=== PATIENT | female | born 2000 | race Caucasian/White ===

== ENCOUNTER 2023-11-03 23:44 | Emergency (ER) | payer OTHER, SELFPAY ==
[2023-11-03 23:56] VITALS: BP 122/69; PULSE 65; RESP 16; TEMP 36.7; O2SAT 96; BMI 20.2
[2023-11-04 00:59] VITALS: BP 139/95; PULSE 62; RESP 16; TEMP 36.1; O2SAT 97
--- NOTE | 2023-11-04 01:06 | MHC.EDTECH ---
This pct just assumed care of Patient vitals taken and Pt urine sample collected and sent to lab .
[2023-11-04 01:13] LABS: Appearance Urine Cloudy; Color Urine Yellow; Glucose Urine UA Negative (Negative); Leukocyte Esterase Urine Large (3+) (Negative); Nitrite Urine Negative (Negative); Specific Gravity - Urine 1.015 (1.005-1.025); UMIC TRIGGER UACC YES; Urine Blood Small (1+) (Negative); Urine Ketones Negative (Negative); Urine Protein Trace mg/dL (Neg-Trace)
[2023-11-04 01:15] LABS: UPreg QC Valid YES; Urine Pregnancy NEGATIVE (NEGATIVE)
[2023-11-04 01:22] LABS: Bacteria Urine 2+ (None Seen); Hyaline Casts Urine 0-2 /LPF (0-2); RBC Urine 0-2 /HPF (0-2); UACC Culture Trigger YES; WBC Urine >50 /HPF (0-5)
[2023-11-04 02:39] VITALS: BP 121/91; PULSE 61; RESP 16; TEMP 36.8; O2SAT 98
--- NOTE | 2023-11-04 03:38 | ED_ITS ---
HPI - Female Genitourinary General Chief complaint: Urogenital-Female Stated complaint: UTI? Time Seen by Provider: 11/04/23 03:38 History of Present Illness HPI Narrative: The patient is a 22-year-old woman who comes to the emergency room with 1 day of dysuria. She says that she has had urinary tract infections in the past and she felt like she has another urinary tract infection. Last intercourse was 1 week ago. There was no dyspareunia. She describes her a slight white vaginal discharge with an odor. No pelvic pain. Related Data Previous Rx's Medication Instructions Recorded phenazopyridine 200 mg tablet 200 mg PO TID PRN pain 6 doses #6 11/04/23 tabs sulfamethoxazole 400 1 tab PO BID #10 tabs 11/04/23 mg-trimethoprim 80 mg tablet (Bactrim) Allergies Allergy/AdvReac Type Severity Reaction Status Date / Time Penicillins [PENICILLINS] Allergy Intermediate HIVES Unverified 11/03/23 23:55 Review of Systems Review of Systems: Yes all other systems are reviewed and are negative [facility] Social History Social History Smoked in Last 30 Days: No Use of substances other than those prescribed or required for medical reasons: No Advance Directives: No Advance Directives Information Provided: No Patient : No Physical Exam Vital Signs: Vital Signs: Last Vital Signs Temp 97.0 F 11/04/23 04:00 Pulse 71 11/04/23 04:00 Resp 16 11/04/23 04:00 BP 115/61 11/04/23 04:00 Pulse Ox 97 11/04/23 04:00 O2 Del Method Room Air 11/04/23 04:00 BMI result Body Mass Index 20.2 Const: Other: The patient has the appearance of an ordinarily healthy 22-year-old. She has not appear ill or toxic. HEENT: Other: The face is symmetrical. ?Mucous membranes moist. Eyes: Other: Pupils are round equal, conjunctivae are clear, extraocular movements intact Resp: Effort & Inspection: normal respiratory effort Auscultation: clear to auscultation bilaterally Cardio: Rate: regular rate Rhythm: regular rhythm Heart sounds: S1 normal heart sound present and S2 normal heart sound present GI: Other: Abdomen is soft and nontender. Back/Spine/Pelvis: Other: No CVA percussion tenderness Skin: Other: Skin is pale and dry Neuro: Other: Awake, alert, appropriate, grossly neurologically intact. Extrem: Other: No peripheral edema. Medications Administered Discontinued Medications Generic Name Dose Route Start Last Admin Trade Name Damaris PRN Reason Stop Dose Admin Phenazopyridine HCl 200 mg 11/04/23 03:46 11/04/23 04:28 Phenazopyridine Hcl 200 Mg Tablet PO 11/04/23 03:47 200 mg ONCE ONE Administration Trimethoprim/Sulfamethoxazole 1 tab 11/04/23 03:46 11/04/23 04:28 Sulfamethox/Trimeth 800/160 Tablet PO 11/04/23 03:47 1 tab ONCE ONE Administration Medical Decision Making Medical Decision Making MDM Narrative: The patient presents with dysuria. Urinalysis is suggestive of a UTI. The patient had mentioned some whitish vaginal discharge at triage but she did not wish to have a pelvic exam today nor did she wished to have any STI testing. She did not want to submit a urine for STI testing. She wanted to be treated for a UTI. She would rather simply treat the UTI and and follow-up if she has additional symptoms or does not improve. test was negative. Lab Data Labs: Lab Results 11/04/23 Range/Units 01:05 Urine Color Yellow Urine Appearance Cloudy Urine pH 6.0 (5.0-9.0) Ur Specific [place] 1.015 (1.005-1.025) Urine Protein Trace (Neg-Trace) mg/dL Urine Glucose (UA) Negative (Negative) mg/dL Urine Ketones Negative (Negative) mg/dL Urine Blood Small (1+) H (Negative) Urine Nitrite Negative (Negative) Ur Leukocyte Esterase Large (3+) H (Negative) Urine RBC 0-2 (0-2) /HPF Urine WBC >50 H (0-5) /HPF Ur Squamous Epith Cells 11-20 (0-2) /HPF Urine Bacteria 2+ (None Seen) Hyaline Casts 0-2 (0-2) /LPF Urine Test NEGATIVE (NEGATIVE) Discharge Plan Discharge Clinical Impression: Urinary tract infection Patient Disposition: Home, Self-Care Instructions: Acute Urinary Retention in Women (ED) Additional Instructions: You have been started on an antibiotic. This is trimethoprim/sulfamethoxazole. This is also known as Bactrim. Please take this medication 2 times a day, approximately every 12 hours. Please finish the whole prescription. I have also sent a prescription for a medication called phenazopyridine this medication can help with the discomfort of urinary tract infection. Be aware it will turn your urine orange. If you have any persistence of vaginal symptoms you should probably be re- evaluated either at your regular doctor's office or you should return to the emergency room for further evaluation. Certainly return if you develop fever or vomiting or are much more uncomfortable in any way. Please work on determining who your primary care doctor is. Prescriptions: New sulfamethoxazole-trimethoprim [Bactrim] 400-80 mg tablet 1 tab PO BID Qty: 10 0RF phenazopyridine 200 mg tablet 200 mg PO TID PRN (Reason: pain) Qty: 6 0RF Interventions: ED Discharge Assessment Last Done: 11/04/23 04:41 Discharge Date/Time: 11/04/23 04:41
[2023-11-04 04:00] VITALS: BP 115/61; PULSE 71; RESP 16; TEMP 36.1; O2SAT 97
[2023-11-04] MEDS: Phenazopyridine HCL 200 MG TABLET PO (04:28)
[2023-11-04] MEDS: Sulfamethox/Trimeth 800/160 TABLET 1 TAB PO (04:28)
== END 2023-11-04 04:41 | disposition home or self-care (01) ==
PROVIDERS: Emergency Provider Emergency Medicine
DX: N39.0 Urinary tract infection, site not specified (principal)
CPT/HCPCS: 81001; 81025; 87086; 87147; 99283; 99284